=== PATIENT | female | born 1945 | race Caucasian/White ===

== ENCOUNTER 2017-10-13 20:29 | Emergency (ER) | payer MEDICARE, OTHER ==
[~2017-10-13] VITALS: Ht 162.6 cm; Wt 68.0 kg
[~2017-10-13 20:29] MED LIST: ALPR0.5T8 PO; ASPI81TA31 PO; ATOR10TA PO; CHOL20004 PO; CLON0.1T PO; ESOM40CA PO; FLUT1DIS28 IH; FURO-152 PO; SOTA80TA26 PO; VALS1TAB4 PO
[2017-10-13] MEDS ORDERED: CEPHALEXIN MONOHYDRATE 500 MG CAPSULE PO ONE (22:45)
[2017-10-13] MEDS ORDERED: SULFAMETH/TRIMETH 800/160 MG TABLET PO ONE (22:45)
[2017-10-13] MEDS ORDERED: SULFAMETH/TRIMETH 800/160 MG TABLET ONE (22:57)
[2017-10-13] MEDS ORDERED: CEPHALEXIN MONOHYDRATE 500 MG CAPSULE ONE (22:58)
[2017-10-13 23:23] VITALS: BP 122/72
== END 2017-10-13 23:00 | disposition home or self-care (01) ==
LOC: ER 20:36
DX: L03.116 Cellulitis of left lower limb (principal); I10 Essential (primary) hypertension; J45.909 Unspecified asthma, uncomplicated; K21.9 Gastro-esophageal reflux disease without esophagitis; Z79.82 Long term (current) use of aspirin; Z79.51 Long term (current) use of inhaled steroids; Z79.899 Other long term (current) drug therapy
CPT/HCPCS: A4663